=== PATIENT | male | born 1990 | race Caucasian/White ===

== ENCOUNTER 2017-07-25 21:44 | Emergency (ER) | payer OTHER ==
[2017-07-25] MEDS: NORCO, ANEXSIA 5/325MG TABLET (HYDROcodone/ACETAMINOPHEN) PO (22:11)
[2017-07-25] MEDS: LIDOCAINE 2% W/EPIN INJ 20ML **PRES FREE INJ (22:15)
[2017-07-26] MEDS: NORCO 5/325MG TABLET (BULK FOR ED) PO (00:15)
== END 2017-07-26 00:16 | disposition home or self-care (01) ==
LOC: M ED 07-26 00:16
DX: S01.81XA Laceration without foreign body of other part of head, initial encounter (principal); S00.93XA Contusion of unspecified part of head, initial encounter; S16.1XXA Strain of muscle, fascia and tendon at neck level, initial encounter; W00.9XXA Unspecified fall due to ice and snow, initial encounter; Y92.830 Public park as the place of occurrence of the external cause; Y93.23 Activity, snow (alpine) (downhill) skiing, snowboarding, sledding, tobogganing and snow tubing
CPT/HCPCS: 70450